=== PATIENT | male | born 1970 | race Caucasian/White ===

== ENCOUNTER 2019-02-28 10:48 | Emergency (ER) | payer BC, OTHER ==
[2019-02-28 12:50] VITALS: BP 123/88
--- NOTE | 2019-02-28 13:10 | UC ---
General HPI - HPI Summary HPI Summary: pt presented for a R elbow injury at work. triage nurse noted a slow HR and obtained a hx of R cp thus she proceeded with an EKG. triage HR of 44 and commented on R CP. pt states hx low HR since 2000. He noted the R cp is muscle from work and not his heart. he has no weakness, light head, fainting, sob, diaphoresis or exertion components. pt states "I shouldn't have said chest pain, I should have said muscle". that has since resolved. pt has no hx htn, DM, high cholesterol, heart or lung disease. - History of Current Complaint Chief Complaint: UCChestPain Stated Complaint: chest pain Time Seen by Provider: 02/28/19 12:56 Hx Obtained From: Patient Pain Intensity: 5 Associated Signs & Symptoms: Negative: Back Pain, Cough, Chest Pain, Dizziness, Diaphoresis, Palpitations, Syncope, SOB, Weakness - Allergy/Home Medications Allergies/Adverse Reactions: Allergies Allergy/AdvReac Type Severity Reaction Status Date / Time No Known Allergies Allergy Verified 02/28/19 12:18 PMH/Surg Hx/FS Hx/Imm Hx - Additional Past Medical History Additional PMH: Bradycardia since 2000. - Surgical History Surgical History: Yes Surgery Procedure, Year, and Place: right olson cyst - Family History Known Family History: Positive: Diabetes - Social History Occupation: Employed Full-time Alcohol Use: Daily Alcohol Amount: 2-3 Substance Use Type: None Smoking Status (MU): Former Smoker Review of Systems All Other Systems Reviewed And Are Negative: Yes Skin: Negative: Rash Respiratory: Negative: Shortness Of Breath, Cough Cardiovascular: Negative: Palpitations, Chest Pain Gastrointestinal: Negative: Abdominal Pain, Nausea Neurological: Positive: Weakness - occasional R FA from job injury., Paresthesia - R elbow to 4/5th finger from job injury Physical Exam Triage Information Reviewed: Yes Appearance: Well-Appearing Vital Signs: Initial Vital Signs Temp 98.1 F 02/28/19 12:47 Pulse 44 02/28/19 12:47 Resp 18 02/28/19 12:47 BP 123/88 02/28/19 12:47 Pulse Ox 100 02/28/19 12:47 Vital Signs Reviewed: Yes Eyes: Positive: Conjunctiva Clear Neck: Positive: Supple, Nontender, No Lymphadenopathy Respiratory: Positive: Chest non-tender, Lungs clear, Normal breath sounds, No respiratory distress Cardiovascular: Positive: No Murmur, Brisk Capillary Refill, Bradycardia - HR 44 Abdomen Description: Positive: Nontender Musculoskeletal: Positive: No Edema, Other: - R elbow tenderness from work injury. ROM intact. Neurological: Positive: Alert Psychological: Positive: Age Appropriate Behavior Skin Exam: Normal Skin: Negative: Rashes Diagnostics - EKG Cardiac Rate: Bradycardia Cardiac Rhythm: Sinus: Normal - HR 41 Ectopy: None ST Segment: Normal Course/Dx - Differential Dx - Multi-Symptom Differential Diagnoses: Other - hx bradycardia since 2000. pt not symptomatic. now denies cp here and states it was muscle in his chest wall from working. - Diagnoses Provider Diagnosis: Bradycardia, Anterior chest wall pain Discharge - Sign-Out/Discharge Documenting (check all that apply): Patient Departure All imaging exams completed and their final reports reviewed: No Studies - Discharge Plan Condition: Stable Disposition: HOME Patient Education Materials: Bradycardia (ED), Chest Wall Pain (ED) Referrals: Lake Mccabe MD [Medical Doctor] - As Soon As Possible Additional Instructions: CALL TO ESTABLISH A PRIMARY CARE DOCTOR - Billing Disposition and Condition Condition: STABLE Disposition: Home
== END 2019-02-28 13:40 | disposition home or self-care (01) ==
LOC: UCCORT 10:48
DX: R00.1 Bradycardia, unspecified (principal); R07.89 Other chest pain; Z87.891 Personal history of nicotine dependence
CPT/HCPCS: 99211; G0463

== ENCOUNTER 2019-02-28 10:48 | Emergency (ER) | payer OTHER ==
[2019-02-28 12:18] VITALS: BP 123/88
--- NOTE | 2019-02-28 12:30 | UC ---
General HPI - HPI Summary HPI Summary: (4 days ago), pt accidentally hit his R elbow with force while at work when he slipper off a wrench. pt states " I hit my funny bone". he is c/o ongoing pain over the elbow and gets numb/tingling into his R 4/5th fingers. Sometimes the forearm into the hand feels weak since the incident. triage noted a HR of 44 and commented on R CP. pt states hx low HR since 2000. He noted the R cp is muscle from work and not his heart. he has no weakness, light head, fainting, sob, diaphoresis or exertion components. - History of Current Complaint Chief Complaint: UCUpperExtremity Stated Complaint: WC-RT ELBOW INJURY Time Seen by Provider: 02/28/19 12:20 Hx Obtained From: Patient Pain Intensity: 5 - Allergy/Home Medications Allergies/Adverse Reactions: Allergies Allergy/AdvReac Type Severity Reaction Status Date / Time No Known Allergies Allergy Verified 02/28/19 12:18 PMH/Surg Hx/FS Hx/Imm Hx - Additional Past Medical History Additional PMH: Bradycardia since 2000 - Surgical History Surgical History: Yes Surgery Procedure, Year, and Place: right olson cyst 1980s, R hand fx - Family History Known Family History: Positive: Non-Contributory - Social History Occupation: Employed Full-time Alcohol Use: Daily Alcohol Amount: 2-3 Substance Use Type: None Smoking Status (MU): Former Smoker Review of Systems All Other Systems Reviewed And Are Negative: Yes Constitutional: Negative: Fatigue Respiratory: Negative: Shortness Of Breath, Cough Cardiovascular: Negative: Palpitations, Chest Pain Musculoskeletal: Positive: Other: - R elbow pain. R chest wall pain Neurological: Positive: Weakness - occasional R forearm into fingers, Paresthesia - R 4/5th finger Physical Exam Triage Information Reviewed: Yes Appearance: Well-Appearing Vital Signs: Initial Vital Signs Temp 98.1 F 02/28/19 11:58 Pulse 44 02/28/19 11:58 Resp 18 02/28/19 11:58 BP 123/88 02/28/19 11:58 Pulse Ox 100 02/28/19 11:58 Neck: Positive: Supple Respiratory: Positive: Lungs clear, Normal breath sounds, No respiratory distress Cardiovascular: Positive: No Murmur, Pulses Normal - BUEs, Bradycardia - HR=44 Musculoskeletal: Positive: Other: - RUE: no gross deformity, swelling or discoloration. Shoulder is non tender. Elbow tender over lateral epicondyl and over medial groove which reproduces the elbow pain that radiates into the forearm and 4/5th fingers. Elbow rom is intact. forearm, wrist and hand non tender with s/v/m intact. Neurological: Positive: Alert Psychological: Positive: Age Appropriate Behavior Skin Exam: Normal Skin: Negative: Rashes Diagnostics - Radiology No standard instances Radiology Interpretation Completed By: Radiologist - IMPRESSION: SLIGHTLY LIMITED STUDY, NO EVIDENCE FOR FRACTURE. - EKG Cardiac Rate: Bradycardia Cardiac Rhythm: Sinus: Normal - hr=41 Ectopy: None ST Segment: Normal Course/Dx - Differential Dx - Multi-Symptom Differential Diagnoses: Other - no fx or dislocation - Diagnoses Provider Diagnosis: Contusion of right elbow, Radiculopathy of arm Discharge - Sign-Out/Discharge Documenting (check all that apply): Patient Departure All imaging exams completed and their final reports reviewed: Yes - Discharge Plan Condition: Stable Disposition: HOME Prescriptions: Naproxen [Naprosyn 500 mg tab] 500 mg PO BID 5 Days #10 tablet Patient Education Materials: Contusion in Adults (ED), Paresthesia (ED) Referrals: Bryan Faye MD [Medical Doctor] - 3 Days Additional Instructions: PURCHASE A FOREARM STRAP AND WEAR IT DAILY TO REDUCE THE STRESS ON YOUR ELBOW. - Billing Disposition and Condition Condition: STABLE Disposition: Home
== END 2019-02-28 13:46 | disposition home or self-care (01) ==
LOC: UCCORT 10:48
DX: S50.01XA Contusion of right elbow, initial encounter (principal); W22.8XXA Striking against or struck by other objects, initial encounter; Y93.89 Activity, other specified; Y92.89 Other specified places as the place of occurrence of the external cause; Y99.0 Civilian activity done for income or pay; M54.12 Radiculopathy, cervical region; Z87.891 Personal history of nicotine dependence
CPT/HCPCS: 93005; 99212; G0463